=== PATIENT | male | born 1990 | race African-American/Black ===

== ENCOUNTER 2020-06-01 10:07 | Emergency (ER) | payer MEDICAID, SELFPAY ==
--- NOTE | ~2020-06-01 | XR_ITS ---
EXAMINATION: XR SHOULDER, RIGHT CLINICAL INFORMATION: Status post fall COMPARISON: 03/28/2019 TECHNIQUE: AP external rotation, Grashey, scapular Y, and axillary views of the right shoulder. FINDINGS: The bones and soft tissues are normal. No fracture. Glenohumeral and acromioclavicular alignment is anatomic with normal joint space. No abnormal soft tissue calcifications. XR/XR shoulder RT min 2V IMPRESSION: Normal right shoulder.
[2020-06-01 10:43] VITALS: BP 132/85; PULSE 88; RESP 18; TEMP 36.6; O2SAT 95; BMI 29.2
--- NOTE | 2020-06-01 12:02 | ED.EXTPRO ---
HPI - Extremity Problem General Chief complaint: Extremity Injury, Upper <Edmundo Powers NP - Last Filed: 06/01/20 12:20> Stated complaint: rt shoulder pain <Edmundo Powers NP - Last Filed: 06/01/20 12:20> Time Seen by Provider: 06/01/20 11:06 <Edmundo Powers NP - Last Filed: 06/01/20 12:20> Source: patient <Edmundo Powers NP - Last Filed: 06/01/20 12:20> Mode of arrival: ambulatory <Edmundo Powers NP - Last Filed: 06/01/20 12:20> Limitations: no limitations <Edmundo Powers NP - Last Filed: 06/01/20 12:20> History of Present Illness HPI Narrative: Otherwise healthy 30-year-old male who reports he has had prior history of rotator cuff injury 2 weeks ago he fell onto the right shoulder and has pain with certain movements in his right shoulder. 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 <Edmundo Powers NP - Last Filed: 06/01/20 12:20> MD Complaint: extremity pain <Edmundo Powers NP - Last Filed: 06/01/20 12:20> Onset (ago): day(s) <Edmundo Powers NP - Last Filed: 06/01/20 12:20> Pain Consistency: intermittent <Edmundo Powers NP - Last Filed: 06/01/20 12:20> Location: right <Edmundo Powers NP - Last Filed: 06/01/20 12:20> Radiation: none <Edmundo Powers NP - Last Filed: 06/01/20 12:20> Exacerbating factors: range of motion <Edmundo Powers NP - Last Filed: 06/01/20 12:20> Related Data Home medications: Previous Rx's Medication Instructions Recorded ibuprofen 800 mg PO Q8H PRN #20 tab 06/01/20 <Edmundo Powers NP - Last Filed: 06/01/20 12:20> Allergies/Adverse reactions: Allergies Allergy/AdvReac Type Severity Reaction Status Date / Time No Known Allergies Allergy Verified 06/01/20 10:45 [No Known Allergies*] <Edmundo Powers NP - Last Filed: 06/01/20 12:20> Review of Systems Review of Systems: Constitutional: No Weight loss, No Fever, No Chills, No Night Sweats, No Fatigue, No Malaise ENT/Mouth: Negative Eyes: Negative Cardiovascular: Negative Respiratory: Negative Gastrointestinal: Negative Genitourinary: Negative Musculoskeletal: No joint pain, No Myalgias, No Joint Swelling, as noted per HPI Skin: No Skin Lesions, No rash Neuro: No Weakness, No Numbness, No Paresthesias, No Loss of Consciousness, No Dizziness, No Headache Psych: Negative Heme/Lymph: No Bruising, No Bleeding,No Lymphadenopathy Endocrine: Negative <Edmundo Powers NP - Last Filed: 06/01/20 12:20> Yes all other systems are reviewed and are negative <Edmundo Powers NP - Last Filed: 06/01/20 12:20> [facility] Past Medical History Medical History: Medical History (Updated 06/02/20 @ 00:00 by Trace Bruce) No known health problems <Edmundo Powers NP - Last Filed: 06/01/20 12:20> Social History Social History: Social History Advance Directives: Yes Advance Directives Information Provided: Yes Advance Directives on File: No <Edmundo Powers NP - Last Filed: 06/01/20 12:20> Physical Exam Vital Signs: Vital Signs: Last Vital Signs Temp 97.8 F 06/01/20 10:43 Pulse 88 06/01/20 10:43 Resp 18 06/01/20 10:43 BP 132/85 06/01/20 10:43 Pulse Ox 95 06/01/20 10:43 Body Mass Index 29.2 Reviewed <Edmundo Powers NP - Last Filed: 06/01/20 12:20> Vital Signs: Last Vital Signs Temp 97.8 F 06/01/20 10:43 Pulse 88 06/01/20 10:43 Resp 18 06/01/20 10:43 BP 132/85 06/01/20 10:43 Pulse Ox 95 06/01/20 10:43 Body Mass Index 29.2 <Ga Herring MD - Last Filed: 06/07/20 06:47> Const: General: cooperative and healthy appearing; No acute distress or intoxicated appearing <Edmundo JosephRANDELL valentin - Last Filed: 06/01/20 12:20> Nutritional Appearance: average body habitus <Edmundo PowersRANDELL - Last Filed: 06/01/20 12:20> Orientation/consciousness: patient oriented x3 <Edmundo PowersRANDELL - Last Filed: 06/01/20 12:20> Neck: Neck: Yes normal visual inspection, No positive Brudzinski's sign, No positive Kernig's sign and No tender <Edmundo JosephRANDELL valentin - Last Filed: 06/01/20 12:20> Thyroid: Thyroid normal <Edmundo Powers, ANESTHESIA ATTENDING - Last Filed: 06/01/20 12:20> Chest: Chest palpation & inspection: normal inspection of the chest <Edmundo JosephRANDELL valentin - Last Filed: 06/01/20 12:20> Resp: Effort & Inspection: normal respiratory effort <Edmundo Powers, ANESTHESIA ATTENDING - Last Filed: 06/01/20 12:20> Auscultation: clear to auscultation bilaterally <Edmundo Powers, ANESTHESIA ATTENDING - Last Filed: 06/01/20 12:20> Cardio: Jugular venous distension: no JVD <Edmundo JosephRANDELL valentin - Last Filed: 06/01/20 12:20> Rhythm: regular rhythm <Edmundo PowersRANDELL valentin - Last Filed: 06/01/20 12:20> Heart sounds: S1 normal heart sound present and S2 normal heart sound present <Edmundo PowersRANDELL valentin - Last Filed: 06/01/20 12:20> : General: Yes no CVA tenderness <Edmundo JosephRANDELL valentin - Last Filed: 06/01/20 12:20> Back/Spine/Pelvis: Back: no CVA tenderness <Edmundo PowersRANDELL valentin - Last Filed: 06/01/20 12:20> Skin: General skin exam: no rashes or lesions noted <Edmundo RANDELL Powers - Last Filed: 06/01/20 12:20> Neuro: General: patient oriented x3 <Edmundojimi JosephRANDELL valentin - Last Filed: 06/01/20 12:20> Extrem: General: Yes normal to inspection <Edmundo RANDELL Powers - Last Filed: 06/01/20 12:20> Course Course Course Narrative: Acute on chronic right shoulder pain secondary to a fall consistent with strain/contusion type injury x-ray unremarkable. Home exercises, NSAIDs return follow-up instructions provided follow-up for Orthopedics provided as well. Stable for discharge. <Edmundo Powers NP - Last Filed: 06/01/20 12:20> I have reviewed the chart <Ga Herring MD - Last Filed: 06/07/20 06:47> MDM - Extremity (Nontraumatic) Imaging Data Right shoulder x-ray: Radiologist's impression: [address] [id number] ReportSigned Patient: Eliseo Barrow JMR#: [id number]: 1990Acct:[id number]/Sex: 30 / MADM Date: 06/01/20Loc: HO.EDAttending Dr: Ordering Physician: Edmundo Powers NP Date of Service: 06/01/20 Procedure(s): XR shoulder RT min 2V Accession Number(s): [id number] cc: Edmundo Powers NP~ EXAMINATION: XR SHOULDER, RIGHT CLINICAL INFORMATION: Status post fall COMPARISON: 03/28/2019 TECHNIQUE: AP external rotation, Grashey, scapular Y, and axillary views of the right shoulder. FINDINGS: The bones and soft tissues are normal. No fracture. Glenohumeral and acromioclavicular alignment is anatomic with normal joint space. No abnormal soft tissue calcifications. XR/XR shoulder RT min 2V IMPRESSION: Normal right shoulder. Dictated By:BIB QUEEN MDSigned By:<Electronically signed by BIB QUEEN MD in OV>06/01/20 1146 DD/ 1108TD/TT: Intravenous Therapy Nurse: TF <Edmundo Powers NP - Last Filed: 06/01/20 12:20> Discharge Plan Discharge Clinical Impression: Injury of shoulder, right <Edmundo Powers NP - Last Filed: 06/01/20 12:20> Patient Disposition: Home, Self-Care <Edmundo Powers NP - Last Filed: 06/01/20 12:20> Instructions: Shoulder Sprain (ED) <Edmundo Powers NP - Last Filed: 06/01/20 12:20> Additional Instructions: Gentle stretching Warm compresses Anti-inflammatory medication as prescribed Follow-up with orthopedics as needed Return if any concerns or worsening symptoms Thank you <Edmundo Powers NP - Last Filed: 06/01/20 12:20> Prescriptions: New ibuprofen 800 mg tablet 800 mg PO Q8H PRN (Reason: pain) Qty: 20 RF: 0 <Edmundo Powers NP - Last Filed: 06/01/20 12:20> Referrals: Josh Machado MD [Physician] - 2 weeks <Edmundo Powers NP - Last Filed: 06/01/20 12:20> Interventions: ED Discharge Assessment Last Done: 06/01/20 12:12 <Edmundo Powers NP - Last Filed: 06/01/20 12:20> Discharge Date/Time: 06/01/20 12:13 <Edmundo Powers NP - Last Filed: 06/01/20 12:20>
== END 2020-06-01 12:13 | disposition home or self-care (01) ==
PROVIDERS: Emergency Provider Emergency Medicine
DX: S49.91XA Unspecified injury of right shoulder and upper arm, initial encounter (principal); W18.30XA Fall on same level, unspecified, initial encounter; Y93.9 Activity, unspecified; Y92.9 Unspecified place or not applicable; Y99.9 Unspecified external cause status
CPT/HCPCS: 73030; 99283

== ENCOUNTER 2021-02-21 13:48 | Outpatient (REF) | payer OTHER, SELFPAY ==
[2021-02-21 14:49] LABS: COVID-19 Test Negative (Negative)
== END 2021-02-21 13:49 | disposition home or self-care (01) ==
LOC: HO.LAB 13:48
PROVIDERS: Visit Provider Internal Medicine
DX: Z20.822 Contact with and (suspected) exposure to COVID-19 (principal)
CPT/HCPCS: 36415; 87635; C9803

== ENCOUNTER 2021-03-02 13:41 | Emergency (ER) | payer OTHER, SELFPAY ==
[2021-03-02 13:44] VITALS: BP 148/77; PULSE 66; RESP 16; TEMP 36.9; O2SAT 98; BMI 28.3
[2021-03-02 14:08] LABS: COVID-19 Test Negative (Negative)
== END 2021-03-02 15:45 | disposition left against medical advice (07) ==
LOC: HO.ED 15:41
PROVIDERS: Emergency Provider Emergency Medicine
DX: R50.9 Fever, unspecified (principal); Z20.822 Contact with and (suspected) exposure to COVID-19
CPT/HCPCS: 36415; 87635; 99282; 99283

== ENCOUNTER → 2021-06-16 15:04 | Outpatient (BNVA) | payer OTHER, SELFPAY | PROVIDERS: Visit Provider Internal Medicine | DX: S69.91XA Unspecified injury of right wrist, hand and finger(s), initial encounter (principal); S59.901A Unspecified injury of right elbow, initial encounter; S49.91XA Unspecified injury of right shoulder and upper arm, initial encounter; W00.0XXA Fall on same level due to ice and snow, initial encounter | CPT/HCPCS: 73030; 73080; 73110; 99203 ==

== ENCOUNTER → 2021-06-20 11:29 | Outpatient (BNVA) | payer OTHER, SELFPAY | PROVIDERS: Visit Provider Internal Medicine | DX: S43.401A Unspecified sprain of right shoulder joint, initial encounter (principal); S69.91XA Unspecified injury of right wrist, hand and finger(s), initial encounter; W18.30XA Fall on same level, unspecified, initial encounter | CPT/HCPCS: 99214 ==

== ENCOUNTER → 2021-06-28 11:19 | Outpatient (BNVA) | payer OTHER, SELFPAY | PROVIDERS: Visit Provider Internal Medicine | DX: S50.01XA Contusion of right elbow, initial encounter (principal); S40.011A Contusion of right shoulder, initial encounter; W18.30XA Fall on same level, unspecified, initial encounter | CPT/HCPCS: 99213 ==

== ENCOUNTER → 2021-07-07 11:29 | Outpatient (BNVA) | payer OTHER, SELFPAY | PROVIDERS: Visit Provider Internal Medicine | DX: S54.01XA Injury of ulnar nerve at forearm level, right arm, initial encounter (principal); S40.011A Contusion of right shoulder, initial encounter; S50.01XA Contusion of right elbow, initial encounter; S60.221A Contusion of right hand, initial encounter; W01.0XXA Fall on same level from slipping, tripping and stumbling without subsequent striking against object, initial encounter | CPT/HCPCS: 99214 ==

== ENCOUNTER → 2021-07-14 13:13 | Outpatient (BNVA) | payer OTHER, SELFPAY | PROVIDERS: Visit Provider Internal Medicine | DX: S53.401A Unspecified sprain of right elbow, initial encounter (principal); S63.501A Unspecified sprain of right wrist, initial encounter; S43.401A Unspecified sprain of right shoulder joint, initial encounter; W18.30XA Fall on same level, unspecified, initial encounter | CPT/HCPCS: 99213 ==

== ENCOUNTER 2021-07-21 12:00 | Outpatient (RCR) | payer OTHER, SELFPAY ==
--- NOTE | 2021-06-28 11:17 | MHC.PT.EP ---
[facility] [place] Office [place] Office [place] Office [address] Raissa Mendez [address] [phone] F: [phone] F: [phone] F: [phone] F: [phone] Physical Therapy Plan of Care Date of Evaluation: Date of Surgery: NA Diagnosis: 15 feet fall- R shoulder contusion Assessment: Eliseo is a 31 year old male who is referred to PT for 15 feet fall, R shoulder contusion . Pt reports slipping on ice and falling on R shoulder and elbow. His arm is currently immobilized in a sling and he is allowed to take out for motions. On PT examination he reports of having 7/10 constant pain in R shoulder, TTP over shoulder and elbow joint line and bony prominence, decreased shoulder and elbow ROM, decreased muscle strength and altered posture. Due to this he has difficulty performing activities like dressing upper body and carrying weights with upper body. He works as a fabricator. He would benefit from skilled PT to address the aforementioned impairments and improve tolerance to functional activities. Frequency and Duration: The patient will be seen 2/week for 6 weeks Short Term Goals: 1. Pt will have 50% decrease in pain which will enable him to sleep through the night in 2 weeks. 2. Pt will be able to move shoulder through all planes of motion without pain which will help him dress her his upper body independently in 4 weeks Jail Goals: 1. Pt will demonstrate an increase in muscle strength by 1 grade which will help him perform IADLS like grocery shopping, cleaning and cooking in 5 weeks. 2. Pt will return to PLOF- working as a fabricator in 6 weeks. Treatment Plan: Modalities to reduce pain, spasms and effusion. Manual therapy to restore motion and function. Therapeutic exercise to improve strength and flexibility. Neuromuscular re-education for posture and balance. Therapeutic activities to return to functional activities of daily living. Electronically signed by: Zeynep Traore PT DPT Please sign and return to therapist. Thank you for your referral.
--- NOTE | 2021-08-10 08:30 | MHC.PT.DC ---
[facility] [place] Office [place] Office [place] Office [address] [phone] F: [phone] F: [phone] F: [phone] F: [phone] Physical Therapy Discharge Report Diagnosis: 15 feet fall- R shoulder contusion Date of Surgery: NA Date of Evaluation: 06/28/21 Date of Discharge: 08/10/21 Treatments to Date: 6 Cancellations to Date: 0 No Shows to Date: 0 Discharge Status: Improved Function Independent with HEP Discharge Summary: Eliseo made good progress with his shoulder and neck pain however was limited in participating in therapy due to elbow and wrist pain. He was scheduled to see OT for evaluation in mid July. He is currently being d/c from PT for shoulder pain. Electronically signed by: Zeynep Traore PT DPT Please sign and return to therapist. Thank you for your referral.
== END 2021-08-10 08:31 | disposition home or self-care (01) ==
LOC: HO.PT 12:00
PROVIDERS: Visit Provider Internal Medicine
DX: S40.021D Contusion of right upper arm, subsequent encounter (principal); Z91.81 History of falling
CPT/HCPCS: 97014; 97110; 97112; 97140; 97161; 97530